=== PATIENT | male | born 1955 | race Hispanic/Latino ===

== ENCOUNTER 2020-01-21 10:33 | Emergency (ER) | payer MEDICARE ==
[2020-01-21 11:06] VITALS: BP 134/91
--- NOTE | 2020-01-21 13:56 | Emergency Department Report ---
ED General Adult HPI - General Chief complaint: Medical Clearance Stated complaint: BLEEDING STOMACH Time Seen by Provider: 01/21/20 13:08 Source: patient Mode of arrival: Ambulatory Limitations: No Limitations - History of Present Illness Initial comments: This is a 64-year-old male nontoxic, well nourished in appearance, no acute signs of distress presents to the ED with c/o of noticing blood this morning on his shirt. Patient is unsure where the blood is coming from. Patient stated that bleeding has resolved. Pt stated bleeding was noticed in the lower shirt area where his lower abdomen area is. Patient called his primary care doctor which he was instructed to come to the emergency room for further evaluation. Patient otherwise denies any pain or discomfort. Patient denies any rectal bleeding or hematuria. Denies any penile complaints. Patient denies any chest pain, shortness of breath, fever, chills, nausea, vomiting, headache, stiff neck, numbness, tingling abdominal pain or pelvic pain. Patient denies any trauma or any injuries. Patient stated he is currently on Plavix and aspirin. -: This morning Severity scale (0 -10): 0 Consistency: now resolved Improves with: none Worsens with: none Associated Symptoms: denies other symptoms. denies: confusion, chest pain, cough, diaphoresis, fever/chills, headaches, loss of appetite, malaise, nausea/vomiting, rash, seizure, shortness of breath, syncope, weakness Treatments Prior to Arrival: none - Related Data Allergies Allergy/AdvReac Type Severity Reaction Status Date / Time No Known Allergies Allergy Verified 01/21/20 11:06 ED Review of Systems ROS: Stated complaint: BLEEDING STOMACH Other details as noted in HPI Constitutional: denies: chills, fever Eyes: denies: eye pain, eye discharge, vision change ENT: denies: ear pain, throat pain Respiratory: denies: cough, shortness of breath, wheezing Cardiovascular: denies: chest pain, palpitations Endocrine: no symptoms reported Gastrointestinal: denies: abdominal pain, nausea, diarrhea Genitourinary: denies: urgency, dysuria Musculoskeletal: denies: back pain, joint swelling, arthralgia Skin: denies: rash, lesions Neurological: denies: headache, weakness, paresthesias Psychiatric: denies: anxiety, depression Hematological/Lymphatic: denies: easy bleeding, easy bruising ED Past Medical Hx - Past Medical History Previous Medical History?: Yes Hx Hypertension: Yes Hx Heart Attack/AMI: Yes - Surgical History Past Surgical History?: Yes Hx Open Heart Surgery: Yes - Social History Smoking Status: Never Smoker Substance Use Type: None ED Physical Exam - General Limitations: No Limitations General appearance: alert, in no apparent distress - Head Head exam: Present: atraumatic, normocephalic - ENT ENT exam: Present: normal exam, normal orophraynx - Neck Neck exam: Present: normal inspection, full ROM. Absent: tenderness, meningismus, lymphadenopathy - Respiratory Respiratory exam: Present: normal lung sounds bilaterally. Absent: respiratory distress, wheezes, rales, rhonchi, stridor, chest wall tenderness, accessory muscle use, decreased breath sounds, prolonged expiratory - Cardiovascular Cardiovascular Exam: Present: regular rate, normal rhythm, normal heart sounds. Absent: bradycardia, tachycardia, irregular rhythm, systolic murmur, diastolic murmur, rubs, gallop - GI/Abdominal GI/Abdominal exam: Present: soft, normal bowel sounds. Absent: distended, tenderness, guarding, rebound, rigid, diminished bowel sounds, mass, bruit, pulsatile mass - Rectal Rectal exam: Present: normal inspection, normal rectal tone, heme (+) stool. Absent: black stool, bloody stool, fecal impaction, hemorrhoids, mass, tenderness - Extremities Exam Extremities exam: Present: normal inspection, full ROM. Absent: tenderness - Back Exam Back exam: Present: normal inspection, full ROM. Absent: tenderness, CVA tenderness (R), CVA tenderness (L), muscle spasm, paraspinal tenderness, vertebral tenderness, rash noted - Neurological Exam Neurological exam: Present: alert, oriented X3, normal gait - Psychiatric Psychiatric exam: Present: normal affect, normal mood - Skin Skin exam: Present: warm, dry, intact, normal color. Absent: rash ED Course Vital Signs 01/21/20 11:01 Temperature 98.3 F Pulse Rate 79 Respiratory 18 Rate Blood Pressure 134/91 O2 Sat by Pulse 97 Oximetry - Reevaluation(s) Reevaluation #1: 01/21/20 13:57 Patient is speaking in full sentences with no signs of distress noted. - Consultations Consultation #1: 01/21/20 13:57 Patient has been consulted with Dr. Noonan about patient history and physical exam, and agrees to ED plan of care. Consultation #2: 01/21/20 15:19 Patient has been consulted with Dr. Noonan about lab results and agrees discharge plan of care with GI follow-up. ED Medical Decision Making - Lab Data Result diagrams: 01/21/20 14:16 01/21/20 14:16 Lab Results 01/21/20 01/21/20 01/21/20 Range/Units 14:16 14:16 14:16 WBC 7.3 (4.5-11.0) K/mm3 RBC 3.66 (3.65-5.03) M/mm3 Hgb 10.9 L (11.8-15.2) gm/dl Hct 31.6 L (35.5-45.6) % MCV 86 (84-94) fl MCH 30 (28-32) pg MCHC 35 H (32-34) % RDW 16.6 H (13.2-15.2) % Plt Count 155 (140-440) K/mm3 Lymph % (Auto) 24.8 (13.4-35.0) % [place] % (Auto) 11.6 H (0.0-7.3) % Eos % (Auto) 4.0 (0.0-4.3) % Baso % (Auto) 0.4 (0.0-1.8) % Lymph # (Auto) 1.8 (1.2-5.4) K/mm3 [place] # (Auto) 0.9 H (0.0-0.8) K/mm3 Eos # (Auto) 0.3 (0.0-0.4) K/mm3 Baso # (Auto) 0.0 (0.0-0.1) K/mm3 Seg Neutrophils % 59.2 (40.0-70.0) % Seg Neutrophils # 4.3 (1.8-7.7) K/mm3 PT 14.0 (12.2-14.9) Sec. INR 1.07 (0.87-1.13) APTT 27.8 (24.2-36.6) Sec. Sodium 134 L (137-145) mmol/L Potassium 4.3 (3.6-5.0) mmol/L Chloride 95.6 L (98-107) mmol/L Carbon Dioxide 26 (22-30) mmol/L Anion Gap 17 mmol/L BUN 17 (9-20) mg/dL Creatinine 1.1 (0.8-1.3) mg/dL Estimated GFR > 60 ml/min BUN/Creatinine Ratio 15 % Glucose 92 (75-100) mg/dL Calcium 9.3 (8.4-10.2) mg/dL Total Bilirubin 0.70 (0.1-1.2) mg/dL Direct Bilirubin < 0.2 (0-0.2) mg/dL Indirect Bilirubin 0.5 mg/dL AST 31 (5-40) units/L ALT 17 (7-56) units/L Alkaline Phosphatase 62 (35-129) units/L Total Protein 7.0 (6.3-8.2) g/dL Albumin 3.9 (3.9-5) g/dL Albumin/Globulin Ratio 1.3 % Urine Color (Yellow) Urine Turbidity (Clear) Urine pH (5.0-7.0) Ur Specific [place] (1.003-1.030) Urine Protein (Negative) mg/dL Urine Glucose (UA) (Negative) mg/dL Urine Ketones (Negative) mg/dL Urine Blood (Negative) Urine Nitrite (Negative) Urine Bilirubin (Negative) Urine Urobilinogen (<2.0) mg/dL Ur Leukocyte Esterase (Negative) Urine WBC (Auto) (0.0-6.0) /HPF Urine RBC (Auto) (0.0-6.0) /HPF U Epithel Cells (Auto) (0-13.0) /HPF Urine Mucus /HPF //20 Range/Units Unknown WBC (4.5-11.0) K/mm3 RBC (3.65-5.03) M/mm3 Hgb (11.8-15.2) gm/dl Hct (35.5-45.6) % MCV (84-94) fl MCH (28-32) pg MCHC (32-34) % RDW (13.2-15.2) % Plt Count (140-440) K/mm3 Lymph % (Auto) (13.4-35.0) % [place] % (Auto) (0.0-7.3) % Eos % (Auto) (0.0-4.3) % Baso % (Auto) (0.0-1.8) % Lymph # (Auto) (1.2-5.4) K/mm3 [place] # (Auto) (0.0-0.8) K/mm3 Eos # (Auto) (0.0-0.4) K/mm3 Baso # (Auto) (0.0-0.1) K/mm3 Seg Neutrophils % (40.0-70.0) % Seg Neutrophils # (1.8-7.7) K/mm3 PT (12.2-14.9) Sec. INR (0.87-1.13) APTT (24.2-36.6) Sec. Sodium (137-145) mmol/L Potassium (3.6-5.0) mmol/L Chloride (98-107) mmol/L Carbon Dioxide (22-30) mmol/L Anion Gap mmol/L BUN (9-20) mg/dL Creatinine (0.8-1.3) mg/dL Estimated GFR ml/min BUN/Creatinine Ratio % Glucose (75-100) mg/dL Calcium (8.4-10.2) mg/dL Total Bilirubin (0.1-1.2) mg/dL Direct Bilirubin (0-0.2) mg/dL Indirect Bilirubin mg/dL AST (5-40) units/L ALT (7-56) units/L Alkaline Phosphatase (35-129) units/L Total Protein (6.3-8.2) g/dL Albumin (3.9-5) g/dL Albumin/Globulin Ratio % Urine Color Yellow (Yellow) Urine Turbidity Clear (Clear) Urine pH 7.0 (5.0-7.0) Ur Specific [place] 1.015 (1.003-1.030) Urine Protein <15 mg/dl (Negative) mg/dL Urine Glucose (UA) Neg (Negative) mg/dL Urine Ketones Neg (Negative) mg/dL Urine Blood Neg (Negative) Urine Nitrite Neg (Negative) Urine Bilirubin Neg (Negative) Urine Urobilinogen < 2.0 (<2.0) mg/dL Ur Leukocyte Esterase Neg (Negative) Urine WBC (Auto) < 1.0 (0.0-6.0) /HPF Urine RBC (Auto) 1.0 (0.0-6.0) /HPF U Epithel Cells (Auto) < 1.0 (0-13.0) /HPF Urine Mucus Few /HPF - Medical Decision Making 64-year-old male that presents with lower GI bleed. Patient is stable and was examined by me. Exam is unremarkable. There is no abdominal pain or distentio n. Labs are within normal limits with slight decrease in hemoglobin due to positive fecal occult blood. Patient is in no acute signs of distress present. Patient was instructed of laboratory results with no questions noted by the patient. Patient was instructed to follow-up with a primary care and rubbish collector doctor in 2 days or if symptoms worsen and continue return to emergency room as soon as possible. At time of discharge, the patient does not seem toxic or ill in appearance. No acute signs of distress noted. Patient agrees to discharge treatment plan of care. No further questions noted by the patient. Critical care attestation.: If time is entered above; I have spent that time in minutes in the direct care of this critically ill patient, excluding procedure time. ED Disposition Clinical Impression: Lower GI bleed Disposition: DC-01 TO HOME OR SELFCARE Is pt being admited?: No Does the pt Need Aspirin: No Condition: Stable Instructions: Gastrointestinal Bleeding (ED) Additional Instructions: Follow-up with a primary care and rubbish collector doctor tomorrow or if symptoms worsen and continue return to emergency room as soon as possible. Referrals: DEMETRA MINER MD [Referring] - 3-5 Days [facility] [Provider Group] - 01/22/20 ERIN CHAIDEZ MD [Staff Physician] - 3-5 Days [facility] [Other] - 01/22/20 Time of Disposition: 15:22
[2020-01-21 14:50] LABS: Basophils % (Auto) 0.4 % (0.0-1.8); Eosinophils # (Auto) 0.3 K/mm3 (0.0-0.4); Hematocrit 31.6 % (35.5-45.6); Hemoglobin 10.9 gm/dl (11.8-15.2); Lymphocytes # (Auto) 1.8 K/mm3 (1.2-5.4); Lymphocytes % (Auto) 24.8 % (13.4-35.0); Mean Corpuscular HGB Conc 35 % (32-34); Mean Corpuscular Volume 86 fl (84-94); Monocytes # (Auto) 0.9 K/mm3 (0.0-0.8); Monocytes % (Auto) 11.6 % (0.0-7.3); Platelet Count 155 K/mm3 (140-440); Red Blood Count 3.66 M/mm3 (3.65-5.03); Red Cell Distribution Width 16.6 % (13.2-15.2)
[2020-01-21 14:53] LABS: Bilirubin,Urine NEG (Negative); Blood,Urine NEG (Negative); Color,Urine Yellow (Yellow); Mucus,Urine FEW /HPF; Protein,Urine <15 mg/dL mg/dL (Negative); Urobilinogen,Urine < 2.0 mg/dL (<2.0); WBC,Urine < 1.0 /HPF (0.0-6.0)
[2020-01-21 15:00] LABS: INR 1.07 (0.87-1.13)
[2020-01-21 15:01] LABS: Alanine Aminotransferase 17 units/L (7-56); Albumin 3.9 g/dL (3.9-5); BUN/Creatinine Ratio 15; Blood Urea Nitrogen 17 mg/dL (9-20); Calcium 9.3 mg/dL (8.4-10.2); Hemolysis Index 9; Partial Thromboplastin Time 27.8 Sec. (24.2-36.6)
[2020-01-21 15:12] LABS: Bilirubin,Direct < 0.2 mg/dL (0-0.2)
== END 2020-01-21 15:58 | disposition home or self-care (01) ==
LOC: ED 10:33
DX: K92.2 Gastrointestinal hemorrhage, unspecified (principal); I25.2 Old myocardial infarction; I10 Essential (primary) hypertension; Z98.890 Other specified postprocedural states
CPT/HCPCS: 36415; 80048; 80076; 81001; 82271; 85025; 85610; 85730

== ENCOUNTER 2020-01-25 16:22 | Emergency (ER) | payer MEDICARE ==
[2020-01-25 17:16] LABS: Basophils % (Auto) 0.6 % (0.0-1.8); Eosinophils # (Auto) 0.2 K/mm3 (0.0-0.4); Eosinophils % (Auto) 3.9 % (0.0-4.3); Hemoglobin 10.1 gm/dl (11.8-15.2); Lymphocytes # (Auto) 1.8 K/mm3 (1.2-5.4); Lymphocytes % (Auto) 30.5 % (13.4-35.0); Mean Corpuscular HGB Conc 34 % (32-34); Mean Corpuscular Volume 86 fl (84-94); Monocytes # (Auto) 0.8 K/mm3 (0.0-0.8); Monocytes % (Auto) 14.8 % (0.0-7.3); Platelet Count 166 K/mm3 (140-440); Red Blood Count 3.49 M/mm3 (3.65-5.03); Red Cell Distribution Width 16.8 % (13.2-15.2)
[2020-01-25 17:30] LABS: Albumin 4.1 g/dL (3.9-5); Calcium 8.3 mg/dL (8.4-10.2); INR 1.06 (0.87-1.13)
[2020-01-25 17:31] LABS: Partial Thromboplastin Time 28.5 Sec. (24.2-36.6)
--- NOTE | 2020-01-25 20:25 | Emergency Department Report ---
ED General Adult HPI - General Chief complaint: Abdominal Pain Stated complaint: ABD PAIN Time Seen by Provider: 01/25/20 20:14 Source: patient Mode of arrival: Ambulatory Limitations: No Limitations - History of Present Illness Initial comments: Patient is 64-year-old male with history of coronary artery disease, liver cirrhosis and hypertension. Patient presented to the ER complaining of lower abdomen bruises. Patient stated that this is been going on for 1 week. Patient was seen here on the 24 of this month for the same. Patient is currently taking Plavix and aspirin. Patient denied any recent injury. No abdominal pain. No nausea or vomiting or diarrhea. Patient also denied any hematemesis, hematochezia, melena, hematuria or hemoptysis. Patient is in no acute distress. - Related Data Allergies Allergy/AdvReac Type Severity Reaction Status Date / Time No Known Allergies Allergy Verified 01/21/20 11:06 ED Review of Systems ROS: Stated complaint: ABD PAIN Other details as noted in HPI Comment: All other systems reviewed and negative Constitutional: denies: chills, fever Respiratory: denies: cough, shortness of breath, SOB with exertion Cardiovascular: denies: chest pain, palpitations Gastrointestinal: denies: abdominal pain, nausea, vomiting, diarrhea, constipation, hematemesis, melena, hematochezia Genitourinary: denies: hematuria ED Past Medical Hx - Past Medical History Previous Medical History?: Yes Hx Hypertension: Yes Hx Heart Attack/AMI: Yes Additional medical history: Liver cirrhossis - Surgical History Hx Open Heart Surgery: Yes - Social History Smoking Status: Never Smoker Substance Use Type: None ED Physical Exam - General Limitations: No Limitations General appearance: alert, in no apparent distress - Head Head exam: Present: atraumatic, normocephalic, normal inspection - Eye Eye exam: Present: normal appearance - ENT ENT exam: Present: normal exam, normal orophraynx, mucous membranes moist - Neck Neck exam: Present: normal inspection, full ROM. Absent: tenderness, me ningismus, lymphadenopathy, thyromegaly - Respiratory Respiratory exam: Present: normal lung sounds bilaterally - Cardiovascular Cardiovascular Exam: Present: regular rate, normal rhythm, normal heart sounds - GI/Abdominal GI/Abdominal exam: Present: soft, normal bowel sounds, other. Absent: distended, tenderness, guarding, rebound, rigid, organomegaly, mass, bruit, pulsatile mass, hernia - Extremities Exam Extremities exam: Present: normal inspection, full ROM, normal capillary refill. Absent: pedal edema, calf tenderness - Back Exam Back exam: Present: normal inspection, full ROM. Absent: CVA tenderness (R), CVA tenderness (L) - Neurological Exam Neurological exam: Present: alert, oriented X3, CN II-XII intact - Skin Skin exam: Present: warm, other (Multiple bruises to the lower abdomen.) ED Course Vital Signs 01/25/20 17:01 Temperature 97.8 F Pulse Rate 64 Respiratory 20 Rate Blood Pressure 143/64 O2 Sat by Pulse 98 Oximetry ED Medical Decision Making - Lab Data Result diagrams: 01/25/20 17:00 01/25/20 17:00 - Medical Decision Making Patient is 64-year-old male with history of coronary artery disease, liver cirrhosis and hypertension. Patient presented to the ER complaining of lower abdomen bruises. Patient stated that this is been going on for 1 week. Patient was seen here on the 24 of this month for the same. Patient is currently taking Plavix and aspirin. Patient denied any recent injury. No abdominal pain. No n ausea or vomiting or diarrhea. Patient also denied any hematemesis, hematochezia, melena, hematuria or hemoptysis. Patient is in no acute distress. Labs reviewed and showed no significant difference from his labs 4 days ago. I believe process is most likely from his dual therapy with aspirin and Plavix plus his liver cirrhosis. Advised patient to follow-up with his oracle technical architect for adjustment of his medication. Patient also advised to return to the ER if he develop any symptoms suggesting of bleeding like hematemesis, hemoptysis, hematuria or melena. Critical care attestation.: If time is entered above; I have spent that time in minutes in the direct care of this critically ill patient, excluding procedure time. ED Disposition Clinical Impression: Superficial bruising of abdominal wall Disposition: DC-01 TO HOME OR SELFCARE Is pt being admited?: No Condition: Stable Instructions: Contusion in Adults (ED) Referrals: PRIMARY CARE, [Referring] - 3-5 Days
[2020-01-25 20:54] VITALS: BP 144/83
== END 2020-01-25 20:50 | disposition home or self-care (01) ==
LOC: ED 16:22
DX: S30.811A Abrasion of abdominal wall, initial encounter (principal); I11.0 Hypertensive heart disease with heart failure; I25.2 Old myocardial infarction; X58.XXXA Exposure to other specified factors, initial encounter; Y93.89 Activity, other specified; Y92.89 Other specified places as the place of occurrence of the external cause; Y99.8 Other external cause status
CPT/HCPCS: 36415; 80053; 85025; 85610; 85730; 86850; 86900; 86901; 99283

== ENCOUNTER 2021-05-31 15:00 | Observation (INO) | payer MEDICARE ==
[2021-05-31] MEDS ORDERED: NITROGLYCERIN 0.4 MG TAB SUBL SL ONE (15:07)
[2021-05-31] MEDS ORDERED: ASPIRIN 325 MG TAB PO ONE (15:07)
[2021-05-31] MEDS ORDERED: MORPHINE 4 MG/1 ML INJ IV ONE (15:08)
[2021-05-31] MEDS ORDERED: ONDANSETRON 4 MG/2 ML INJ IV ONE (15:08)
--- NOTE | 2021-05-31 15:08 | Emergency Department Report ---
ED General Adult HPI - General Chief complaint: Chest Pain Stated complaint: SOB/CP PUI?: No Time Seen by Provider: 05/31/21 15:06 Source: patient, RN notes reviewed, old records reviewed Mode of arrival: Stretcher Limitations: No Limitations - History of Present Illness Initial comments: The patient was evaluated in the emergency department for symptoms described in the history of present illness. He/she was evaluated in the context of the global COVID-19 pandemic, which necessitated consideration that the patient might be at risk for infection with the virus that causes COVID-19. Institutional protocols and algorithms that pertain to the evaluation of patients at risk for COVID-19 are in a state of rapid change based on information released by regulatory bodies including the CDC and federal and state organizations. These policies and algorithms were followed during the patient's care in the emergency department. Please note that these policies, procedures and recommendations changed on a rapid basis. The patient is a 65-year-old gentleman with a history of obesity, body mass index of 37.8 hypertension, alcohol abuse, reported cirrhosis, status sternotomy, reported history of NC, recently admitted to [facility] for a few days at the beginning of April, patient uncertain as to why he is admitted, now presenting to the ER today with a complaint of sudden chest pain or shortness of breath. He is not COVID-19 vaccinated. He denies vomiting or diaphoresis. He feels like his legs are little bit swollen. He reports that after being admitted to that hospital, he was then transferred to a psychiatric facility for alcohol abuse. Patient reports that he presented today as an outpatient from a local psychiatric facility, and while being evaluated at an outside facility, developed hypotension, and sudden onset of chest pain or shortness of breath. He is not homicidal or suicidal. -: Sudden Location: chest Radiation: non-radiation Quality: sharp Consistency: constant Improves with: none Worsens with: none - Related Data Home Medications Medication Instructions Recorded Confirmed Last Taken Clopidogrel [Plavix] 75 mg PO QDAY 05/31/21 05/31/21 Unknown Furosemide [Lasix] 20 mg PO QDAY 05/31/21 05/31/21 Unknown Gabapentin 400 mg PO BID 05/31/21 05/31/21 Unknown Isosorbide Dinitrate 30 mg PO DAILY 05/31/21 05/31/21 Unknown Mirtazapine [Remeron] 15 mg PO HS 05/31/21 05/31/21 Unknown [place]-3S/Dha/Epa/Fish Oil/D3 1 each PO DAILY 05/31/21 05/31/21 Unknown [[place]-3 + D Softgel] QUEtiapine [SEROquel] 100 mg PO HS 05/31/21 05/31/21 Unknown amLODIPine [Norvasc] 10 mg PO DAILY 05/31/21 05/31/21 Unknown carvediloL [Coreg] 12.5 mg PO BID 05/31/21 05/31/21 Unknown Allergies Allergy/AdvReac Type Severity Reaction Status Date / Time No Known Allergies Allergy Verified 05/31/21 15:12 ED Review of Systems ROS: Stated complaint: SOB/CP Other details as noted in HPI Constitutional: malaise, weakness. denies: fever Eyes: denies: eye discharge ENT: denies: epistaxis Respiratory: shortness of breath. denies: wheezing Cardiovascular: chest pain, edema Gastrointestinal: denies: abdominal pain, nausea, vomiting, hematemesis, melena, hematochezia Neurological: weakness Psychiatric: anxiety. denies: homicidal thoughts, suicidal thoughts ED Past Medical Hx - Past Medical History Hx Hypertension: Yes Hx Heart Attack/AMI: Yes Additional medical history: Liver cirrhossis - Surgical History Hx Open Heart Surgery: Yes - Social History Smoking Status: Never Smoker Substance Use Type: Alcohol - Medications Home Medications: Home Medications Medication Instructions Recorded Confirmed Last Taken Type Clopidogrel [Plavix] 75 mg PO QDAY 05/31/21 05/31/21 Unknown History Furosemide [Lasix] 20 mg PO QDAY 05/31/21 05/31/21 Unknown History Gabapentin 400 mg PO BID 05/31/21 05/31/21 Unknown History Isosorbide Dinitrate 30 mg PO DAILY 05/31/21 05/31/21 Unknown History Mirtazapine [Remeron] 15 mg PO HS 05/31/21 05/31/21 Unknown History [place]-3S/Dha/Epa/Fish Oil/D3 1 each PO DAILY 05/31/21 05/31/21 Unknown History [[place]-3 + D Softgel] QUEtiapine [SEROquel] 100 mg PO HS 05/31/21 05/31/21 Unknown History amLODIPine [Norvasc] 10 mg PO DAILY 05/31/21 05/31/21 Unknown History carvediloL [Coreg] 12.5 mg PO BID 05/31/21 05/31/21 Unknown History ED Physical Exam - General General appearance: alert, anxious, in distress, obese - Head Head exam: Present: atraumatic, normocephalic - Eye Eye exam: Present: normal appearance, EOMI. Absent: nystagmus - ENT ENT exam: Present: normal exam, normal orophraynx, mucous membranes moist, normal external ear exam - Neck Neck exam: Present: normal inspection, full ROM. Absent: tenderness, meningismus - Respiratory Respiratory exam: Present: decreased breath sounds. Absent: respiratory distress, wheezes, rales, rhonchi, stridor - Cardiovascular Cardiovascular Exam: Present: regular rate, normal rhythm, normal heart sounds. Absent: bradycardia, tachycardia, irregular rhythm, systolic murmur, diastolic murmur, rubs, gallop - GI/Abdominal GI/Abdominal exam: Present: soft. Absent: distended, tenderness, guarding, rebound, rigid, pulsatile mass - Rectal Rectal exam: Present: deferred - Extremities Exam Extremities exam: Present: normal inspection, full ROM, pedal edema (2+ edema noted in the bilateral lower extremities), other (2+ pulses noted in the bilateral upper and lower extremities. There is no palpable cord. negative Homans sign. Muscular compartments are soft. The pelvis is stable.). Absent: calf tenderness - Back Exam Back exam: Present: normal inspection, full ROM. Absent: tenderness, CVA tenderness (R), CVA tenderness (L), paraspinal tenderness, vertebral tenderness - Neurological Exam Neurological exam: Present: alert, oriented X3, other (No facial droop. Tongue midline. Extraocular movements intact bilaterally. Facial sensation intact to light touch in V1, V2, V3 distribution bilaterally. 5 and a 5 strength in 4 extremities. Sensation intact to light touch in 4 extremities.). Absent: motor sensory deficit - Psychiatric Psychiatric exam: Present: anxious. Absent: homicidal ideation, suicidal ideation - Skin Skin exam: Present: warm, dry, intact, normal color. Absent: rash ED Course Vital Signs 05/31/21 05/31/21 05/31/21 15:11 16:05 16:10 Temperature 98.9 F Pulse Rate 77 79 80 Respiratory 22 18 Rate Blood Pressure 125/71 Blood Pressure 150/86 111/66 [Left] O2 Sat by Pulse 100 99 Oximetry 05/31/21 05/31/21 16:38 16:51 Temperature Pulse Rate 77 Respiratory 20 20 Rate Blood Pressure Blood Pressure 154/85 [Left] O2 Sat by Pulse 98 99 Oximetry - Reevaluation(s) Reevaluation #1: 05/31/21 15:53 Differential diagnosis, including but not limited to: GERD, gastritis, hiatal hernia, pneumonia, acute coronary syndrome, congestive heart failure, pulmonary embolism Assessment and plan: 65-year-old gentleman, who is moderate risk for major adverse cardiac event as per heart score, presenting with sudden onset chest pain and shortness of breath, reports being admitted to another hospital a few weeks ago for unclear reasons. Have requested prior medical records. Place patient on residential monitor. Treat his pain aggressively. Obtain appropriate laboratory studies, x-ray the chest, CT scan of the chest to evaluate for pulmonary embolism. Reassess after initial data points. Patient does not meet criteria for 1013 hold or 2012 hold at this time. 05/31/21 17:40 Patient has improvement with nitroglycerin and morphine. Laboratory studies show negative troponin and positive D-dimer. He also has a white count of 19,000, with 3% bandemia. Uncertain if this is a stress reaction versus infectious pathology versus demargination. Denies urinary symptoms and has no abdominal pain, and no skin lesions or cutaneous lesions. He denies fevers and chills, as well as rigors Bacteremia is unlikely, however, given leukocytosis of 19,000 with bandemia, we will cover empirically with ceftriaxone. Blood cultures and lactic acid ordered. X-ray the chest suggested possible lower lobe infiltrate, but a CT scan of the chest was obtained, which showed no pulmonary infiltrates no pulmonary embolism. placed page to cardiology on-call. We anticipate admission. 05/31/21 17:46 Please see cardiology consultative note. Hospital physician is paged to arrange admission. 05/31/21 18:20 Patient is agreeable to admission and hospitalization. Dr. Valenzuela to admit patient to the medical service. Patient is asking to eat at this time. Urinalysis at the bedside. - Consultations Consultation #1: 05/31/21 17:45 Discussed the patient's history, physical, laboratory studies imaging studies, EKG findings and clinical impression with cardiology on-call, Dr. Gutierrez. He is in agreement with the plan of care. Recommend stress test and echocardiogram indicates the cardiology group can follow in consultation. ED Medical Decision Making - Lab Data Result diagrams: 05/31/21 15:28 05/31/21 15:28 Vital Signs 05/31/21 15:11 Temperature 98.9 F Pulse Rate 77 Respiratory 22 Rate Blood Pressure 150/86 [Left] O2 Sat by Pulse 100 Oximetry - EKG Data -: EKG Interpreted by Wy EKG shows normal: sinus rhythm Rate: normal - EKG Data 05/31/21 15:50 The EKG is interpreted at 14: 43 Sinus rhythm, 93 bpm. Normal axis, normal P wave axis, QTC [address] abnormality. This is not a STEMI. There are multiple PVCs. Sustained V. tach is not noted. 05/31/21 17:45 - Radiology Data Radiology results: pending, report reviewed, image reviewed CHEST 2 VIEWS INDICATION / CLINICAL INFORMATION: Chest Pain. COMPARISON: July 12, 2014 FINDINGS: SUPPORT DEVICES: None. HEART / MEDIASTINUM: No significant abnormality. LUNGS / PLEURA: Slight increased opacification within the right lung base No pneumothorax. ADDITIONAL FINDINGS: No significant additional findings. IMPRESSION: 1. Slight increased opacification within the right lower lobe which may represent infectious process. Signer Name: Danish Alberts DO Signed: 05/31/2021 2:30 PM Workstation Name: [id number] CTA CHEST WITH CONTRAST INDICATION / CLINICAL INFORMATION: acute chest pain. TECHNIQUE: Axial CT images were obtained through the chest after injection of 100 cc Omnipaque 350 IV contrast. 3 plane MIP and/or 3D reconstructions were produced. All CT scans at this location are performed using CT dose reduction for ALARA by means of automated exposure control. COMPARISON: None available. FINDINGS: PULMONARY ARTERIES: No pulmonary emboli. THORACIC AORTA: No significant abnormality. HEART: No pericardial effusion. CORONARY ARTERY CALCIFICATION: CABG MEDIASTINUM / LINA: No significant abnormality. PLEURA: No pleural effusion. No pneumothorax. LUNGS: No acute air space or interstitial disease. ADDITIONAL FINDINGS: None. UPPER ABDOMEN: Cholelithiasis. SKELETAL STRUCTURES: No significant osseous abnormality. IMPRESSION: 1. No CT evidence for pulmonary embolism. 2. No acute findings. 3. Incidental findings as above. Signer Name: Maximo Lagos MD Signed: 05/31/2021 4:23 PM Workstation Name: [email or web address] Critical care attestation.: If time is entered above; I have spent that time in minutes in the direct care of this critically ill patient, excluding procedure time. ED Disposition Clinical Impression: Acute chest pain, Leukocytosis, Bandemia Disposition: ADMITTED INPATIENT Is pt being admited?: Yes Does the pt Need Aspirin: No (given in er) Condition: Good Instructions: Chest Pain (ED) Referrals: PRIMARY CARE,MD [Primary Care Provider] - 3-5 Days Heart Score - HEART Score History: Moderately suspicious EKG: Non-specific Age: > 65 Risk factors: > 3 risk factors or hx of atherosclerotic disease Troponin: < normal limit HEART Score: 6 - EKG Read Time Time EKG Completed: 14:43 EKG Read Time: 14:43 - Critical Actions Critical Actions: 4-6 pts:12-16.6% risk of adverse cardiac event. Should be admitted
--- NOTE | 2021-05-31 15:35 | XRay Report ---
CHEST 2 VIEWS INDICATION / CLINICAL INFORMATION: Chest Pain. COMPARISON: July 12, 2014 FINDINGS: SUPPORT DEVICES: None. HEART / MEDIASTINUM: No significant abnormality. LUNGS / PLEURA: Slight increased opacification within the right lung base No pneumothorax. ADDITIONAL FINDINGS: No significant additional findings. IMPRESSION: 1. Slight increased opacification within the right lower lobe which may represent infectious process. Signer Name: Danish Alberts DO Signed: 05/31/2021 3:30 PM Workstation Name: [id number]
[2021-05-31 15:55] LABS: Hematocrit 36.9 % (35.5-45.6); Hemoglobin 12.2 gm/dl (11.8-15.2); Mean Corpuscular HGB Conc 33 % (32-34); Mean Corpuscular Volume 91 fl (84-94); Platelet Count 213 K/mm3 (140-440); Red Blood Count 4.04 M/mm3 (3.65-5.03); Red Cell Distribution Width 16.4 % (13.2-15.2)
[2021-05-31 15:57] LABS: INR 0.85 (0.87-1.13)
[2021-05-31 16:22] LABS: Alanine Aminotransferase 33 units/L (7-56); Albumin 3.5 g/dL (3.9-5); BUN/Creatinine Ratio 18; Blood Urea Nitrogen 21 mg/dL (9-20); Calcium 8.3 mg/dL (8.4-10.2); Hemolysis Index 14
[2021-05-31 16:40] LABS: Total Cells Counted 100
[2021-05-31 16:41] LABS: Anisocytosis 1+; Band Neutrophils # (Manual) 0.6 K/mm3; Basophils % (Manual) 0 % (0.0-1.8); Eosinophils % (Manual) 0 % (0.0-4.3); Large Platelets Few; Myelocytes # (Manual) 0.2 K/mm3; Platelet Estimate Consistent w Auto
--- NOTE | 2021-05-31 17:27 | Cat Scan Report ---
CTA CHEST WITH CONTRAST INDICATION / CLINICAL INFORMATION: acute chest pain. TECHNIQUE: Axial CT images were obtained through the chest after injection of 100 cc Omnipaque 350 IV contrast. 3 plane MIP and/or 3D reconstructions were produced. All CT scans at this location are per formed using CT dose reduction for ALARA by means of automated exposure control. COMPARISON: None available. FINDINGS: PULMONARY ARTERIES: No pulmonary emboli. THORACIC AORTA: No significant abnormality. HEART: No pericardial effusion. CORONARY ARTERY CALCIFICATION: CABG MEDIASTINUM / LINA: No significant abnormality. PLEURA: No pleural effusion. No pneumothorax. LUNGS: No acute air space or interstitial disease. ADDITIONAL FINDINGS: None. UPPER ABDOMEN: Cholelithiasis. SKELETAL STRUCTURES: No significant osseous abnormality. IMPRESSION: 1. No CT evidence for pulmonary embolism. 2. No acute findings. 3. Incidental findings as above. Signer Name: Maximo Lagos MD Signed: 05/31/2021 5:23 PM Workstation Name: [id number]
[2021-05-31] MEDS ORDERED: cefTRIAXone/NS 1 GM/50 ML 1 GM/50 ML BAG IV ONE (17:38)
--- NOTE | 2021-05-31 18:17 | History and Physical Report ---
History of Present Illness Chief complaint: My chest feels tight History of present illness: 65 YO Male with Obesity Hypoventilation Syndrome, HTN, ETOH Dependence, Cirrhosis, AK, CAD S/P CABG currently on antiplatelet therapy, MDD presents to ED for evaluation. Patient reported "my chest feels tight". Patient states that he has experienced a sudden onset of pain in his chest today. Patient states his pain is 6/10, constant, worsened with exertion, relieved with rest, associated with shortness of breath. Patient acknowledges decreased exercise tolerance. Patient transported to [facility] via private vehicle for further care and evaluation of the aforementioned symptoms. The patient was seen and evaluated in the emergency department. All lab and imaging studies reviewed. Patient found to have angina, systemic inflammatory response syndrome, and major depression. Patient admitted to medical floor with remote telemetry and initiated on ACS protocol due to increased risk of worsening symptoms. Patient denies fever, chills, palpitation, productive cough, skin rash or recent contact, or known exposure to COVID-19. No prior admission for review. All medication listed at time of admission has been reconciled. Advanced care planning conducted in ED. Past History Past Medical History: acute AK, CAD, hypertension, other (See HPI) Past Surgical History: CABG Social history: single, alcohol abuse Family history: diabetes, hypertension Medications and Allergies Allergies Allergy/AdvReac Type Severity Reaction Status Date / Time No Known Allergies Allergy Verified 05/31/21 15:12 Home Medications Medication Instructions Recorded Confirmed Last Taken Type Clopidogrel [Plavix] 75 mg PO QDAY 05/31/21 05/31/21 Unknown History Furosemide [Lasix] 20 mg PO QDAY 05/31/21 05/31/21 Unknown History Gabapentin 400 mg PO BID 05/31/21 05/31/21 Unknown History Isosorbide Dinitrate 30 mg PO DAILY 05/31/21 05/31/21 Unknown History Mirtazapine [Remeron] 15 mg PO HS 05/31/21 05/31/21 Unknown History [place]-3S/Dha/Epa/Fish Oil/D3 1 each PO DAILY 05/31/21 05/31/21 Unknown History [[place]-3 + D Softgel] QUEtiapine [SEROquel] 100 mg PO HS 05/31/21 05/31/21 Unknown History amLODIPine [Norvasc] 10 mg PO DAILY 05/31/21 05/31/21 Unknown History carvediloL [Coreg] 12.5 mg PO BID 05/31/21 05/31/21 Unknown History Review of Systems Constitutional: no weight loss, no weight gain, no fever, no chills Ears, nose, mouth and throat: no ear pain, no ear discharge, no tinnitis, no nose pain Cardiovascular: chest pain, shortness of breath, decreased exercise tolerance, no palpitations, no rapid/irregular heart beat, no edema Respiratory: no cough, no cough with sputum, no hemoptysis, no shortness of breath Gastrointestinal: no nausea, no vomiting, no constipation Genitourinary Male: no hematuria, no flank pain, no urinary hesitancy, no incontinence Rectal: no pain, no incontinence, no bleeding Musculoskeletal: no neck stiffness, no neck pain, no shooting leg pain Integumentary: no pruritis, no sores, no wounds Neurological: no head injury, no paralysis, no parathesias, no seizures Psychiatric: depression, no anxiety, no change in sleep habits, no insomnia, no change in appetite, no change in libido Endocrine: no cold intolerance, no heat intolerance, no excessive thirst Hematologic/Lymphatic: no easy bruising, no easy bleeding Allergic/Immunologic: no urticaria, no wheezing Exam - Constitutional Vitals: Temp Pulse Resp BP Pulse Ox 98.9 F 77 20 154/85 99 05/31/21 15:11 05/31/21 16:51 05/31/21 16:51 05/31/21 16:51 05/31/21 16:51 General appearance: Present: mild distress, obese - EENT Eyes: Present: PERRL ENT: hearing intact, clear oral mucosa - Neck Neck: Present: supple, normal ROM - Respiratory Respiratory effort: normal Respiratory: bilateral: CTA - Cardiovascular Heart Sounds: Present: S1 & S2. Absent: rub, click - Extremities Extremities: pulses symmetrical, No edema Peripheral Pulses: within normal limits - Abdominal General gastrointestinal: Present: soft, non-tender, non-distended, normal bowel sounds Male genitourinary: Present: normal - Integumentary Integumentary: Present: clear, warm, dry - Musculoskeletal Musculoskeletal: gait normal, strength equal bilaterally - Psychiatric Psychiatric: appropriate mood/affect, intact judgment & insight - Neurologic Neurologic: CNII-XII intact, moves all extremities HEART Score - HEART Score EKG: Non-specific Age: > 65 Risk factors: > 3 risk factors or hx of atherosclerotic disease Troponin: Troponin T < 0.010 ng/mL (0.00-0.029) 05/31/21 17:29 Troponin: < normal limit - Critical Actions Critical Actions: 4-6 pts:12-16.6% risk of adverse cardiac event. Should be admitted Results - Labs CBC & Chem 7: 05/31/21 15:28 05/31/21 15:28 Labs: Abnormal lab results 05/31/21 05/31/21 05/31/21 Range/Units 15:28 15:28 15:28 WBC 19.9 H (4.5-11.0) K/mm3 RDW 16.4 H (13.2-15.2) % Seg Neutrophils # Man 13.7 H (1.8-7.7) K/mm3 INR 0.85 L (0.87-1.13) APTT 23.0 L (24.2-36.6) Sec. D-Dimer 268.52 H (0-234) ng/mlDDU Sodium 132 L (137-145) mmol/L Chloride 97.5 L (98-107) mmol/L BUN 21 H (9-20) mg/dL Calcium 8.3 L (8.4-10.2) mg/dL Total Creatine Kinase (55-170) units/L Total Protein 6.2 L (6.3-8.2) g/dL Albumin 3.5 L (3.9-5) g/dL 05/31/21 Range/Units 15:28 WBC (4.5-11.0) K/mm3 RDW (13.2-15.2) % Seg Neutrophils # Man (1.8-7.7) K/mm3 INR (0.87-1.13) APTT (24.2-36.6) Sec. D-Dimer (0-234) ng/mlDDU Sodium (137-145) mmol/L Chloride (98-107) mmol/L BUN (9-20) mg/dL Calcium (8.4-10.2) mg/dL Total Creatine Kinase 52 L (55-170) units/L Total Protein (6.3-8.2) g/dL Albumin (3.9-5) g/dL Assessment and Plan - Patient Problems (1) Angina at rest Current Visit: Yes Status: Acute Plan to address problem: ACS protocol: Serial cardiac enzymes, EKG, telemetry, cardiology team consulted in ED, further care and evaluation as per cardiology team. (2) Obesity hypoventilation syndrome Current Visit: Yes Status: Acute Plan to address problem: Balanced diet, increase physical activity discharge, outpatient pulmonary follow-up for sleep study. (3) Systemic inflammatory response syndrome Current Visit: Yes Status: Acute Plan to address problem: Empiric IV antibiotic therapy, chest x-ray, CBC, BMP, urinalysis, repeat CBC in a.m. (4) Alcohol dependence Current Visit: Yes Status: Acute Plan to address problem: CIWA protocol: Thiamine, folic acid, multivitamin daily. (5) Depression Current Visit: Yes Status: Acute Plan to address problem: Mental health team consulted in ED. (6) DVT prophylaxis Current Visit: Yes Status: Acute Plan to address problem: SCD to bilateral lower extremities while in bed, patient is ambulatory (7) Advance care planning Current Visit: Yes Status: Acute Plan to address problem: Disease education conducted, care plan discussed, diagnoses discussed, prognosis discussed, patient is full code. Patient acknowledges understanding and agreement with care plan. +30 minutes. (8) COVID-19 vaccination not done Current Visit: Yes Status: Acute Plan to address problem: Patient counseled.
[2021-05-31] MEDS ORDERED: LORazepam 2 MG/ML VIAL IV PRN (18:21)
[2021-05-31] MEDS ORDERED: ASPIRIN 81 MG TAB CHEW PO STA (18:57)
[2021-05-31] MEDS ORDERED: traMADol 50 MG TAB PO PRN (18:57)
[2021-05-31] MEDS ORDERED: MORPHINE 4 MG/1 ML INJ IV PRN (18:57)
[2021-05-31 19:08] LABS: Bilirubin,Urine NEG (Negative); Blood,Urine NEG (Negative); Color,Urine Colorless (Yellow); Protein,Urine <15 mg/dL mg/dL (Negative); RBC,Urine < 1.0 /HPF (0.0-6.0); Urobilinogen,Urine < 2.0 mg/dL (<2.0); WBC,Urine < 1.0 /HPF (0.0-6.0)
[2021-05-31] MEDS ORDERED: THIAMINE 100 MG TAB PO ONE (20:00)
[2021-05-31] MEDS ORDERED: MULTIVITAMINS ,THERAPEUTIC TAB PO ONE (20:00)
[2021-05-31] MEDS: FOLIC ACID 1 MG TAB PO SCH (20:50)
[2021-05-31] MEDS: ACETAMINOPHEN 325 MG TAB PO PRN (20:51)
[2021-05-31] MEDS ORDERED: QUEtiapine 100 MG TAB PO SCH (22:00)
[2021-05-31] MEDS ORDERED: MIRTAZAPINE 15 MG TAB PO SCH (22:00)
[2021-05-31] MEDS: carvediloL 12.5 MG TAB PO SCH (22:14)
[2021-05-31] MEDS: GABAPENTIN 400 MG CAP PO SCH (22:14)
[2021-06-01] MEDS ORDERED: FUROSEMIDE 20 MG TAB PO SCH (06:00)
[2021-06-01] MEDS ORDERED: CLOPIDOGREL 75 MG TAB PO SCH (10:00)
[2021-06-01] MEDS ORDERED: ISOSORBIDE DINITRATE 30 MG PO SCH (10:00)
[2021-06-01] MEDS ORDERED: amLODIPine 10 MG TAB PO SCH (10:00)
[2021-06-01] MEDS: GABAPENTIN 400 MG CAP PO SCH (11:53)
[2021-06-01] MEDS: FOLIC ACID 1 MG TAB PO SCH (11:54)
[2021-06-01] MEDS: carvediloL 12.5 MG TAB PO SCH (11:54)
[2021-06-01 12:05] VITALS: BP 127/65
[2021-06-01] MEDS ORDERED: ASPIRIN 81 MG TAB CHEW PO SCH (13:00)
--- NOTE | 2021-06-01 13:49 | Consultation ---
History of Present Illness Consult date: 06/01/21 Requesting physician: GEORGIA SWENSON History of present illness: Patient is a 65-year-old male with a past medical history of, HTN, AL, CAD S/P CABG currently on antiplatelet therapy, and MDD who came to [facility] for complaint of chest tightness which began yesterday. Patient states that he felt like his heart was pounding out of his chest and he was also short of breath. Patient denies any exacerbating factors. Patient denies nausea, vomiting, diaphoresis, lightheadedness, or weakness. Of note recently admitted to [facility] at the beginning of April for which he states he had Covid and upon discharge he was transferred to a psychiatric facility for alcohol abuse. Furthermore patient was recently seen at [facility] in the in March for similar complaints and had a negative ischemic eval. Patient is previously unknown to our practice and he reports he does not follow any studio potter. Cardiology is consulted for chest pain. Past History Past Medical History: acute AL, CAD, hypertension, other (See HPI) Past Surgical History: CABG Social history: single, alcohol abuse Family history: diabetes, hypertension Medications and Allergies Allergies Allergy/AdvReac Type Severity Reaction Status Date / Time No Known Allergies Allergy Verified 05/31/21 15:12 Home Medications Medication Instructions Recorded Confirmed Last Taken Type Clopidogrel [Plavix] 75 mg PO QDAY 05/31/21 05/31/21 Unknown History Furosemide [Lasix] 20 mg PO QDAY 05/31/21 05/31/21 Unknown History Gabapentin 400 mg PO BID 05/31/21 05/31/21 Unknown History Isosorbide Dinitrate 30 mg PO DAILY 05/31/21 05/31/21 Unknown History Mirtazapine [Remeron] 15 mg PO HS 05/31/21 05/31/21 Unknown History [place]-3S/Dha/Epa/Fish Oil/D3 1 each PO DAILY 05/31/21 05/31/21 Unknown History [[place]-3 + D Softgel] QUEtiapine [SEROquel] 100 mg PO HS 05/31/21 05/31/21 Unknown History amLODIPine [Norvasc] 10 mg PO DAILY 05/31/21 05/31/21 Unknown History carvediloL [Coreg] 12.5 mg PO BID 05/31/21 05/31/21 Unknown History Active Meds: Active Medications Acetaminophen (Acetaminophen 325 Mg Tab) 650 mg PO Q6H PRN PRN Reason: Pain, Mild (1-3) Last Admin: 05/31/21 20:51 Dose: 650 mg Amlodipine Besylate (Amlodipine 10 Mg Tab) 10 mg PO DAILY REPLACED BY [facility] Last Admin: 06/01/21 11:54 Dose: 10 mg Aspirin (Aspirin 81 Mg Tab Chew) 81 mg PO QDAY REPLACED BY [facility] Carvedilol (Carvedilol 12.5 Mg Tab) 12.5 mg PO BID REPLACED BY [facility] Last Admin: 06/01/21 11:54 Dose: 12.5 mg Clopidogrel Bisulfate (Clopidogrel 75 Mg Tab) 75 mg PO QDAY REPLACED BY [facility] Last Admin: 06/01/21 11:54 Dose: 75 mg Folic Acid (Folic Acid 1 Mg Tab) 1 mg PO QDAY REPLACED BY [facility] Last Admin: 06/01/21 11:54 Dose: 1 mg Furosemide (Furosemide 20 Mg Tab) 20 mg PO DAILY@0600 REPLACED BY [facility] Last Admin: 06/01/21 06:47 Dose: 20 mg Gabapentin (Gabapentin 400 Mg Cap) 400 mg PO BID REPLACED BY [facility] Last Admin: 06/01/21 11:53 Dose: 400 mg Isosorbide Mononitrate (Isosorbide Mononitrate Er 30 Mg Tab) 30 mg PO DAILY REPLACED BY [facility] Last Admin: 06/01/21 11:53 Dose: 30 mg Lorazepam (Lorazepam 2 Mg/Ml Vial) 2 mg IV Q1HR PRN PRN Reason: CIWA-Ar 8-15 Mirtazapine (Mirtazapine 15 Mg Tab) 15 mg PO HS REPLACED BY [facility] Last Admin: 05/31/21 22:14 Dose: 15 mg Morphine Sulfate (Morphine 4 Mg/1 Ml Inj) 2 mg IV TID PRN PRN Reason: Chest Pain unrelieved by NTG Last Admin: 05/31/21 22:04 Dose: 2 mg Pravastatin Sodium (Pravastatin 80 Mg Tab) 80 mg PO QHS REPLACED BY [facility] Quetiapine Fumarate (Quetiapine 100 Mg Tab) 100 mg PO HS REPLACED BY [facility] Last Admin: 05/31/21 22:14 Dose: 100 mg Sodium Chloride (Sodium Chloride 0.9% 10 Ml Flush Syringe) 10 ml IV PRN PRN PRN Reason: LINE FLUSH Last Admin: 06/01/21 11:56 Dose: 10 ml Tramadol HCl (Tramadol 50 Mg Tab) 50 mg PO Q6H PRN PRN Reason: Pain, Moderate (4-6) Last Admin: 06/01/21 03:50 Dose: 50 mg Review of Systems Constitutional: no fever, no chills, no sweats Ears, nose, mouth and throat: no nasal congestion, no nasal discharge, no sinus pressure Cardiovascular: chest pain, palpitations, shortness of breath, no orthopnea, no lightheadedness, no leg edema Respiratory: shortness of breath, dyspnea on exertion Gastrointestinal: no abdominal pain, no nausea, no vomiting Musculoskeletal: no neck stiffness, no neck pain Integumentary: no rash, no pruritis, no redness, no sores Neurological: no head injury, no transient paralysis Psychiatric: no anxiety, no memory loss Endocrine: no cold intolerance, no heat intolerance Hematologic/Lymphatic: no easy bruising, no easy bleeding Physical Examination Vital Signs Temp Pulse Resp BP Pulse Ox 98.9 F 77 22 150/86 100 05/31/21 15:11 05/31/21 15:11 05/31/21 15:11 05/31/21 15:11 05/31/21 15:11 General appearance: no acute distress HEENT: Positive: PERRL Neck: Positive: trachea midline Cardiac: Positive: Reg Rate and Rhythm Lungs: Positive: Normal Breath Sounds Neuro: Positive: Grossly Intact Abdomen: Positive: Soft Skin: Negative: Rash, Suspicious Lesions, Ulceration Extremities: Present: upper extr. pulses. Absent: edema Results 05/31/21 15:28 05/31/21 15:28 Cardiac Enzymes 05/31/21 Range/Units 15:28 AST 27 (5-40) units/L Coagulation 05/31/21 Range/Units 15:28 PT 12.6 (12.2-14.9) Sec. INR 0.85 L (0.87-1.13) APTT 23.0 L (24.2-36.6) Sec. CBC 05/31/21 Range/Units 15:28 WBC 19.9 H (4.5-11.0) K/mm3 RBC 4.04 (3.65-5.03) M/mm3 Hgb 12.2 (11.8-15.2) gm/dl Hct 36.9 (35.5-45.6) % Plt Count 213 (140-440) K/mm3 Comprehensive Metabolic Panel 05/31/21 Range/Units 15:28 Sodium 132 L (137-145) mmol/L Potassium 3.6 (3.6-5.0) mmol/L Chloride 97.5 L (98-107) mmol/L Carbon Dioxide 22 (22-30) mmol/L BUN 21 H (9-20) mg/dL Creatinine 1.2 (0.8-1.3) mg/dL Glucose 95 (75-100) mg/dL Calcium 8.3 L (8.4-10.2) mg/dL AST 27 (5-40) units/L ALT 33 (7-56) units/L Alkaline Phosphatase 110 (35-129) units/L Total Protein 6.2 L (6.3-8.2) g/dL Albumin 3.5 L (3.9-5) g/dL - Imaging and Cardiology Echo: report reviewed EKG: report reviewed, image reviewed EKG interpretations - Telemetry EKG Rhythm: Sinus Rhythm - EKG Sinus rhythms and dysrhythmias: sinus rhythm Ventricular dysrhythmias: ventricular premature com Assessment and Plan Patient is a 65-year-old male with a past medical history of, HTN, AL, CAD S/P CABGx3 (in 2010 and 3 stents the last of which was 9 years ago) currently on antiplatelet therapy, and MDD who came to [facility] for complaint of chest tightness which the day of admission to hospital Chest pain HTN CAD s/p CABG ETOH abuse Leukocytosis Elevated D-dimer Echo 04/20/2021 1. Normal left ventricular size and systolic function with an ejection fraction of 55 to 60%. No regional wall motion abnormality. Normal diastolic function. Sclerocalcific valvular changes with no significant dysfunction. No pericardial effusion. Stress 04/19/2021-Normal SPECT myocardial perfusion images. There is no evidence of significant infarction or ischemia. There are no wall motion abnormalities. Left ventricular function is normal. The ejection fraction is 50-70%. Outpatient medications: Amlodipine 10 mg p.o. daily, aspirin, Coreg 12.5 mg p.o. twice daily, Plavix, lisinopril 10 mg p.o. daily, pravastatin 80 mg p.o. nightly, Lasix 20 mg p.o. as needed Plan: EKG shows sinus rhythm 93 with PVCs. No acute ischemic changes. Troponins negative x4. Patient currently chest pain-free. AMI ruled out Resume outpatient medications Cardiac enzymes negative, patient is currently chest pain-free, appears euvolemic on exam, and had recent ischemic eval No further indication for cardiac work-up. Cardiac status stable for discharge Patient requested to follow-up as an outpatient with a studio potter. Patient may follow-up with our group Patient should follow-up with our group 1 to 2 weeks after discharge. Phone #[phone] Patient seen in conjunction with Dr. Bosch who agrees with this plan of care - Patient Problems (1) CAD (coronary artery disease), bypass graft transplanted heart Current Visit: Yes Status: Acute (2) HTN (hypertension) Current Visit: Yes Status: Acute (3) Acute chest pain Current Visit: Yes Status: Acute (4) Depression Current Visit: Yes Status: Acute (5) Obesity hypoventilation syndrome Current Visit: Yes Status: Acute (6) Systemic inflammatory response syndrome Current Visit: Yes Status: Acute (7) Leukocytosis Current Visit: Yes Status: Acute
--- NOTE | 2021-06-01 13:56 | Discharge Summary ---
Providers - Providers Date of Admission: 05/31/21 18:57 Date of discharge: 06/01/21 Attending physician: CHERYL VALDEZ 05/31/21 Consult to Cardiac Rehabilitation [CONS] Routine Reason For Exam: Phase I 05/31/21 17:38 Consult to Physician [CONS] Urgent Comment: Consulting Provider: DANNY VERDE Physician Instructions: Reason For Exam: acute chest pain 05/31/21 19:49 Consult to Mental Health [CONS] Routine Reason For Exam: Depression Primary care physician: ELASTIC ATTACHER CHAINSTITCH Hospitalization Condition: Good Disposition: 01 HOME / SELF CARE / HOMELESS Final Discharge Diagnosis (Prints w/discharge instructions): --Atypical chest pain, likley GERD Time spent for discharge: 34 minutes Exam - Constitutional Vitals: Temp Pulse Resp BP Pulse Ox 97.9 F 67 18 127/65 98 06/01/21 08:42 06/01/21 11:53 06/01/21 08:42 06/01/21 11:53 06/01/21 08:42 Plan Activity: advance as tolerated Weight Bearing Status: Weight Bear as Tolerated Diet: low fat, low salt Follow up with: PRIMARY CAREMD [Primary Care Provider] - 3-5 Days DANNY VERDE MD [Staff Physician] - 7 Days
[2021-06-01] MEDS: ACETAMINOPHEN 325 MG TAB PO PRN (17:21)
[2021-06-01] MEDS ORDERED: PRAVASTATIN 80 MG TAB PO SCH (22:00)
--- NOTE | 2021-06-02 14:31 | Electrocardiograph Report ---
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
--- NOTE | 2021-06-02 14:38 | Electrocardiograph Report ---
[facility] Test Date: 2021-06-01 Test Time: 13:45:31 Pat Name: BRAD JOHNSON Department: Room: A477 1 Gender: M [employer] Machine Operator: AYAKA : 1955 Requested By: GEORGIA SWENSON Order Number: [id number] Reading MD: Denise Bob Measurements Intervals [place] Rate: 68 P: 63 [place]: 189 QRS: 70 QRSD: 92 T: 10 QT: 382 QTc: 407 Interpretive Statements Sinus rhythm Normal ECG Compared to ECG 05/31/2021 15:04:41 Ventricular premature complex(es) no longer present Electronically Signed On 06-02-2021 14:38:38 EST by Denise Bob
== END 2021-06-01 18:00 | disposition home or self-care (01) ==
LOC: ED 15:00 → 3A 18:57 → 4A 06-01 06:28
PROVIDERS: ADMIT Internal Medicine; ATTEND Internal Medicine
DX: I20.8 Other forms of angina pectoris (principal); R65.10 Systemic inflammatory response syndrome (SIRS) of non-infectious origin without acute organ dysfunction; E66.2 Morbid (severe) obesity with alveolar hypoventilation; F10.129 Alcohol abuse with intoxication, unspecified; F32.A Depression, unspecified; I25.2 Old myocardial infarction; I10 Essential (primary) hypertension; K74.60 Unspecified cirrhosis of liver; D72.829 Elevated white blood cell count, unspecified; Z68.37 Body mass index [BMI] 37.0-37.9, adult; Z95.1 Presence of aortocoronary bypass graft; Z79.899 Other long term (current) drug therapy; Z98.890 Other specified postprocedural states
CPT/HCPCS: 36415; 71046; 71275; 80053; 81001; 82140; 82550; 83735; 83880; 84484; 85007; 85025; 85379; 85610; 85730; 87040; 93005; 93010; 96365; 96375; 96376; 99285; G0378; J0696; J2270; J2405; Q9967

== ENCOUNTER 2021-09-12 21:23 | Emergency (ER) | payer MEDICARE ==
[2021-09-12] MEDS ORDERED: ASPIRIN 325 MG TAB PO ONE (22:05)
--- NOTE | 2021-09-12 22:42 | XRay Report ---
XR chest routine 2V INDICATION / CLINICAL INFORMATION: CHEST PAIN. COMPARISON: 05/31/2021 FINDINGS: SUPPORT DEVICES: None. HEART /PULMONARY VASCULATURE: Stable. LUNGS / PLEURA: No significant pulmonary or pleural abnormality. No pneumothorax. ADDITIONAL FINDINGS: No significant additional findings. IMPRESSION: 1. No acute findings. Signer Name: Nick Clemente MD Signed: 09/12/2021 10:37 PM Workstation Name: [id number]
[2021-09-12 23:06] LABS: Basophils % (Auto) 0.4 % (0.0-1.8); Eosinophils # (Auto) 0.2 K/mm3 (0.0-0.4); Hematocrit 36.9 % (35.5-45.6); Lymphocytes # (Auto) 2.3 K/mm3 (1.2-5.4); Lymphocytes % (Auto) 26.9 % (13.4-35.0); Mean Corpuscular HGB Conc 33 % (32-34); Mean Corpuscular Volume 87 fl (84-94); Monocytes # (Auto) 1.2 K/mm3 (0.0-0.8); Monocytes % (Auto) 13.5 % (0.0-7.3); Platelet Count 137 K/mm3 (140-440); Red Blood Count 4.23 M/mm3 (3.65-5.03); Red Cell Distribution Width 16.4 % (13.2-15.2)
[2021-09-12 23:29] LABS: Alanine Aminotransferase 34 units/L (7-56); Albumin 4.2 g/dL (3.9-5); BUN/Creatinine Ratio 16; Blood Urea Nitrogen 14 mg/dL (9-20); Calcium 9.9 mg/dL (8.4-10.2); Hemolysis Index 4
[2021-09-13] MEDS ORDERED: NITROGLYCERIN 2% OINT 1 GM TP ONE (03:17)
[2021-09-13] MEDS ORDERED: ONDANSETRON 4 MG/2 ML INJ IV ONE (03:18)
[2021-09-13] MEDS ORDERED: MORPHINE 4 MG/1 ML INJ IV ONE (03:18)
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
[2021-09-13] MEDS ORDERED: ACETAMINOPHEN 325 MG TAB PO PRN (05:16)
[2021-09-13] MEDS ORDERED: MORPHINE 4 MG/1 ML INJ IV PRN (05:16)
[2021-09-13] MEDS ORDERED: NITROGLYCERIN 0.4 MG TAB SUBL SL PRN (05:16)
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
[2021-09-13 05:51] LABS: Basophils % (Auto) 0.5 % (0.0-1.8); Eosinophils # (Auto) 0.2 K/mm3 (0.0-0.4); Eosinophils % (Auto) 2.3 % (0.0-4.3); Hematocrit 33.7 % (35.5-45.6); Hemoglobin 11.5 gm/dl (11.8-15.2); Lymphocytes # (Auto) 1.9 K/mm3 (1.2-5.4); Mean Corpuscular HGB Conc 34 % (32-34); Mean Corpuscular Volume 86 fl (84-94); Monocytes % (Auto) 15.3 % (0.0-7.3); Platelet Count 132 K/mm3 (140-440); Red Blood Count 3.91 M/mm3 (3.65-5.03); Red Cell Distribution Width 15.8 % (13.2-15.2)
[2021-09-13 06:14] LABS: BUN/Creatinine Ratio 19; Blood Urea Nitrogen 15 mg/dL (9-20); Calcium 9.2 mg/dL (8.4-10.2); Hemolysis Index 13
[2021-09-13] MEDS: traMADol 50 MG TAB PO PRN ×2 (08:49→09:36)
[2021-09-13] MEDS ORDERED: GABAPENTIN 400 MG CAP PO SCH (10:00)
[2021-09-13] MEDS ORDERED: PANTOPRAZOLE 40 MG TAB PO SCH (10:00)
[2021-09-13] MEDS ORDERED: OMEGA-3 FATTY ACIDS/FISH OIL 1 GRAM CAP PO SCH (10:00)
[2021-09-13] MEDS ORDERED: CLOPIDOGREL 75 MG TAB PO SCH (10:00)
[2021-09-13] MEDS ORDERED: carvediloL 12.5 MG TAB PO SCH (10:00)
[2021-09-13] MEDS ORDERED: FUROSEMIDE 20 MG TAB PO SCH (10:00)
[2021-09-13] MEDS ORDERED: HEPARIN 5,000 UNIT/1 ML VIAL SUB-Q SCH (10:00)
[2021-09-13] MEDS ORDERED: amLODIPine 10 MG TAB PO SCH (10:00)
--- NOTE | 2021-09-13 11:42 | Electrocardiograph Report ---
[facility] Test Date: 2021-09-12 Test Time: 21:48:18 Pat Name: BRAD JOHNSON Department: Room: [place] [address] Gender: M Line Patroller: NATACHA : 1955 Requested By: JOAQUIN LANDIN Order Number: [id number] Reading MD: Thierry Bosch Measurements Intervals Monitor Rate: 110 P: 68 LA: 178 QRS: 72 QRSD: 92 T: 25 QT: 328 QTc: 443 Interpretive Statements Sinus tachycardia Ventricular trigeminy Probable left atrial enlargement Consider anteroseptal infarct Compared to ECG 06/01/2021 13:45:31 Ventricular premature complex(es) now present Electronically Signed On 09-13-2021 11:41:31 EDT by Thierry Bosch
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
[2021-09-13 14:22] VITALS: BP 120/75
[2021-09-13] MEDS ORDERED: QUEtiapine 100 MG TAB PO SCH (22:00)
[2021-09-13] MEDS ORDERED: MIRTAZAPINE 15 MG TAB PO SCH (22:00)
[2021-09-14] MEDS ORDERED: ASPIRIN EC 81 MG TAB PO SCH (10:00)
[2021-09-14] MEDS ORDERED: ASPIRIN EC 325 MG TAB PO SCH ×2 (10:00)
== END 2021-09-13 14:22 | disposition admitted as inpatient to this hospital (09) ==
LOC: ED 21:23 → INTOOBSV 09-13 05:16 → UNDOADMOB 09-13 05:16 → 4A 09-13 05:16 → ED 09-13 14:22
DX: I25.10 Atherosclerotic heart disease of native coronary artery without angina pectoris (principal); I25.812 Atherosclerosis of bypass graft of coronary artery of transplanted heart without angina pectoris; R07.9 Chest pain, unspecified; Z91.14 Patient's other noncompliance with medication regimen; I10 Essential (primary) hypertension; G89.4 Chronic pain syndrome
CPT/HCPCS: 36415; 71046; 80048; 80053; 83690; 83735; 84145; 84484; 85025; 93005; 96374; 96375; 99284; J2270; J2405